=== PATIENT | male | born 1960 | race Caucasian/White ===

== ENCOUNTER → 2016-06-17 | Outpatient (CLI) | payer OTHER ==
[~2016-06-17] MED LIST: CIPR-255 PO; CLON0.5T3 PO; CLX20 PO
[2016-06-17 18:10] LABS: BASO % 0.5 %; BASO ABS # 0.04 K/uL (0-0.2); COMPLETE YES; EOS % 1.5 %; HEMATOCRIT 38.8 % (42-52); IG% 0.4 %; LYMPH % 23.1 %; LYMPH ABS # 1.89 K/uL (1.2-3.4); MEAN CELL VOLUME 88.2 fL (80-100); MEAN CORPUSCULAR HGB CONC 36.3 g/dl (32-36); MEAN PLATELET VOLUME 10.1 fL (7.4-10.4); MONO % 7.9 %; NEUT % 66.6 %; PLATELET COUNT 253 K/uL (130-400); WHITE BLOOD COUNT 8.19 K/uL (4.8-10.8)
[2016-06-17 18:17] LABS: ALT/SGPT 36 U/L (12-78); AMYLASE 72 U/L (25-115); BLOOD UREA NITROGEN 14 mg/dl (7-18); BUN/CREATININE RATIO 12.9 (10-20); CALCIUM 8.5 mg/dl (8.5-10.1); CARBON DIOXIDE 26 mmol/L (21-32); CHLORIDE 106 mmol/L (98-107); GLUCOSE 85 mg/dl (70-99); POTASSIUM 3.9 mmol/L (3.5-5.1); SODIUM 142 mmol/L (136-145)
[2016-06-17 18:20] LABS: ALB/GLOB RATIO 1.3 (0.9-2); ALKALINE PHOSPHATASE 66 U/L (45-117); AST/SGOT 16 U/L (15-37)
== END | disposition home or self-care (01) ==
LOC: C.LABSPEC 17:44
PROVIDERS: ATTEND Family Medicine
DX: R10.84 Generalized abdominal pain (principal)

== ENCOUNTER → 2016-08-17 | Outpatient (CLI) | payer OTHER ==
--- NOTE | 2016-08-17 08:42 | DIAGNOSTIC IMAGING REPORT ---
GI W/AIR SMALL BOWEL ROUTINE CLINICAL HISTORY: R14.0 Abdominal [id number] Left upper quadrant pain. COMPARISON STUDY: Abdomen and pelvis CT 09/19/2015. FLUOROSCOPY TIME: 1.1 minutes. 31 images.. FINDINGS: The patient swallowed barium without difficulty. The esophagus normal in course, caliber, motility. Small hiatus hernia. No gastroesophageal reflux. No gastric ulcerations. The duodenal bulb and duodenal C sweep are within normal limits. Additional overhead and fluoroscopic spot images of the small bowel were obtained over 50 minutes. The small bowel is normal in course and caliber. No evidence for bowel obstruction. The terminal ileum is normally distensible. IMPRESSION: 1. Small hiatus hernia. 2. Otherwise, normal upper GI series and small bowel follow-through. Electronically signed by: Neftali Santos M.D. 08/17/2016 8:41 AM Dictated Date/Time: 08/17/2016 8:38 AM
== END | disposition home or self-care (01) ==
LOC: C.RAD 07:16
PROVIDERS: ATTEND Registered Nurse
DX: R13.10 Dysphagia, unspecified (principal); R14.0 Abdominal distension (gaseous); R10.12 Left upper quadrant pain; K44.9 Diaphragmatic hernia without obstruction or gangrene

== ENCOUNTER 2022-09-30 06:07 | Observation (INO) ==
--- NOTE | 2022-09-22 09:48 | History & Physical Report ---
Date of Service September 22, 2022 date of surgery: 09/30/22 Procedure: Bilateral Total Knee Arthroplasty Surgeon: Luis Felipe Pena Assessment & Plan (1) Degenerative arthritis of knee, bilateral: Plan: Risk and benefits of procedure were discussed in detail, he has failed conservative measures like to proceed with surgical invention. Plan will be bilateral total knee arthroplasty. We will plan an overnight stay with discharge home the following day with home health physical therapy. Will place on Xarelto for 1 month postop. We will plan on 2 weeks of in-home therapy followed by outpatient physical therapy. He otherwise has no other questions or concerns The risks and benefits have been discussed including, but not limited to, risk of infection, nerve injury, stiffness, loss of motion, failure to improve, etc. Reasonable outcomes and options of treatment were discussed. An explanation of appropriate alternatives to the procedure that may be advantageous were discussed and their risks and benefits, as well as the risks and benefits of not proceeding with treatment. I offered to answer any additional inquiries concerning the treatment involved. All the patient's questions were answered. The patient is agreeable, understanding of the treatment plan and alternatives, and wishes to proceed with the treatment plan. History of Present Illness Chief Complaint: bilateral knee pain Primary Care Provider: Jen Lopez DO Mr Mccormack is a pleasant 62-year-old male presented for preop evaluation prior to bilateral total knee replacements. He has been having pain in both of his knees for many years now and now affecting his daily activities including walking standing using stairs. He has a history of left knee arthroscopy with partial meniscectomy in February 2015. Since that time is undergone viscosupplementation as well as cortisone injection without any significant improvement at this point time is failed conservative measures and like to proceed with surgical intervention Allergies Allergy/AdvReac Type Severity Reaction Status Date / Time diphenhydramine Allergy Mild hyper and Verified 10/16/19 08:01 anxious dicyclomine [From Bentyl] Allergy . Verified 10/16/19 08:01 SUNBLOCK Allergy Intermediate HIVES Uncoded 10/16/19 08:01 Home Medications Medication Instructions Recorded Confirmed Type citalopram 20 mg tablet 20 mg PO HS 02/10/18 08/23/19 History meloxicam 15 mg tablet 15 mg PO QAM 05/14/19 08/23/19 History rosuvastatin 10 mg tablet 10 mg PO QAM 05/14/19 08/23/19 History hyoscyamine sulfate 0.125 mg tablet 0.125 mg PO Q8H PRN abdominal pain 08/23/19 Rx #20 tabs lansoprazole 30 mg capsule,delayed 30 mg PO DAILY 08/23/19 08/23/19 History release tramadol 50 mg tablet 50 mg PO Q6H PRN pain #10 tabs 08/23/19 Rx oxycodone 5 mg tablet 5 mg PO Q6H PRN pain #25 tabs 10/14/19 Rx Past Med/Surg History Medical History Anxiety Asthma exercise induced--inhaler prn Depression Diverticular disease GERD (gastroesophageal reflux disease) Hearing deficit L ear History of esophageal dilatation x4-5 Hyperlipidemia no meds Pancreatitis Surgical History History of arthroplasty of left knee History of colonoscopy History of esophagogastroduodenoscopy (EGD) History of left inguinal hernia repair History of tonsillectomy and adenoidectomy Social History Smoking Status: Never smoker Second Hand Exposure: Yes (father smoked); Do You Dip or Chew Tobacco: No; Hx Alcohol Use: Yes Alcohol type: beer, wine and hard liquor Hx Substance Use: No Preferred Language: Arabic Communication Ability: Effective Carbider Required: No Beliefs That Will Affect Care: None Current Living Situation: Spouse and Family Current Living Situation Comment: lives with and daughter Feels Safe at Home: Yes Assistive Devices: None Review of Systems Review of Systems: All systems reviewed & are unremarkable except as noted in HPI & below Constitutional: no fever, no chills and no sweats Respiratory: no cough and no dyspnea Cardiovascular: no chest pain, no dyspnea and no orthopnea Gastrointestinal: no abdominal pain, no nausea and no vomiting Musculoskeletal: as per Subjective / HPI Physical Exam Constitutional: WD/WN, vitals as above no acute distress Respiratory: normal respiratory effort, lungs clear to auscultation no respiratory distress, no labored breathing and does not use accessory muscles Cardiovascular: RRR, no murmur, no edema Gastrointestinal (Abdomen): normal bowel sounds, soft, nontender, no hepatosplenomegaly Musculoskeletal: Bilateral knee Physical exam Overall patient has varus alignment bilaterally, there is no atrophy or ecchymosis noted, +1 suprapatellar effusion in both knees, positive tenderness to both medial and lateral joint lines right knee, more medial sided tenderness to the left knee. negative patellar apprehension, positive crepitation noted to both knees with active ROM. bilateral knees stable to valgus and varus stress, poonam negative, posterior drawer negative. Range of motion right knee 0/3/110, left knee 0/3/115. lower extremities are neurovascularly intact, calf soft and non tender, DP pulse +2 bilaterally. Results & Data Results & Data Diagnostic Findings 4 views of Bilateral Knee X-ray: bilateral knee series confirms advanced degenerative changes bilateral knees, greatest medial compartments and patellofemoral joints, showing joint space narrowing, osteophyte formation and subchondral sclerosis. no acute bony pathology noted.
--- NOTE | 2022-09-22 13:37 | PAT Medication Instructions ---
Medication Instructions Date of Service September 22, 2022 Home Medications Medication Instructions Recorded tramadol 50 mg tablet 50 mg PO Q6H PRN pain #10 tabs 08/23/19 citalopram 20 mg tablet 20 mg PO HS tramadol 50 mg tablet 50 mg PO Q6H PRN omeprazole 40 mg capsule,delayed release 40 mg PO QAM Take morning of surgery With a small sip of water, OTHERWISE NOTHING TO EAT OR DRINK AFTER MIDNIGHT: tramadol 50 mg tablet 50 mg PO Q6H PRN(if needed) omeprazole 40 mg capsule,delayed release 40 mg PO QAM Take evening before surgery citalopram 20 mg tablet 20 mg PO HS tramadol 50 mg tablet 50 mg PO Q6H PRN(if needed) Other Notes If you have any questions please call us at [phone] or [phone] or [phone] or [phone]
--- NOTE | 2022-09-28 12:41 | Anesthesiology Consultation ---
Date of Service September 28, 2022 Assessment & Plan (1) Encounter for pre-operative examination: - bilat TKA discussion vs staged and patient wishes to proceed with bilat TKA. Chart Review Chart Review: Acceptable Risk for Surgery and Patient seen in Pre Admission Testing Teaching & Discussion Pre-Anesthesia Teaching/Discussion Notes: Instructed NPO after midnight before surgery, except medications with 15 cc of water. Medication instructions provided according to the PAT guidelines. History Surgery Operation Date: 09/30/22 08:25 Proposed Procedures p Bilateral Total Knee Arthroplasty - Luis Felipe Pena DO Height/Weight Height: 5 ft 10 in Weight: 93.6 kg Allergies Allergy/AdvReac Type Severity Reaction Status Date / Time diphenhydramine Allergy Mild hyper and Verified 09/22/22 12:11 anxious dicyclomine [From Bentyl] Allergy itching Verified 09/22/22 12:11 SUNBLOCK Allergy Intermediate HIVES Uncoded 10/16/19 08:01 Medications Home Medications Medication Instructions Recorded Confirmed Last Taken citalopram 20 mg tablet 20 mg PO HS 02/10/18 09/22/22 05/13/19 tramadol 50 mg tablet 50 mg PO Q6H PRN pain #10 tabs 08/23/19 09/22/22 Unknown omeprazole 40 mg capsule,delayed 40 mg PO QAM 09/22/22 09/22/22 Unknown release Past Medical History Medical History (Updated 09/28/22 @ 12:54 by Estefani Sawant PA-C) Anxiety Asthma exercise induced-no longer has an inhalers>no current issues Depression Diverticulitis hx, 5 yrs ago GERD (gastroesophageal reflux disease) controlled, stable per pt Hearing deficit L ear History of COVID-2021, home test, not hosp; severe sore throat, fatigue>resolved. History of esophageal dilatation x4-5 Hyperlipidemia Pancreatitis hx-between 5-10 years ago, not hospitalized, resolved in a days Patient denies h/o stroke, seizures, heart attack, heart failure, DM, HTN, blood clots or blood transfusions. Exercise / Class Metabolic Activity II 4-5 Yardwork/Stairs/Walk up hill (denies chest discomfort or shortness of breath with 1 FOs) Past Surgical History Surgical History History of colonoscopy History of esophagogastroduodenoscopy (EGD) History of left inguinal hernia repair History of tonsillectomy and adenoidectomy Hx of arthroscopy of left knee Past Anesthesia History No Hx of Anesthesia Complications and No Family Hx of Anesthesia Complications History of PONV No Hx of PONV and No Hx of Motion Sickness Social History Smoking Status: Never smoker Do You Dip or Chew Tobacco: No Hx Alcohol Use: Yes Alcohol type: beer, wine and hard liquor alcohol intake frequency: holidays/special occasions only Hx Substance Use: No substance use type: does not use Review of Systems Snoring, denies witnessed apneas. Patient denies chest pain, shortness of breath, dyspnea on exertion, fever, chills, cough, wheezing, or palpitations. Physical Exam Vital Signs Vitals BP 161/103 automatic and manual. Pt states had caffeine today and knee pain has been gradually worsening over the past few weeks. BP re-check with patient resting in room-manual 150/98. P 65 SP02 97% on RA RESP 18 Physical Full cervical extension range of motion without pain TMD3.5 finger breadths Mallampati Score 3 Dentition: several crowns, denies chipped or loose teeth, caps, implants or bridges Lungs: normal respiratory effort. Good air movement, clear throughout to auscultation, no adventitious breath sounds Cardiac: regular rate and rhythm, no murmurs noted Carotid arteries: negative bruit bilat Lab Results Anesthesia Preop Results Results Anesthesia Widget: WBC 8.26 K/ul (4.8-10.8) 09/28/22 Hgb 14.4 g/dl (14.0-18.0) 09/28/22 Hct 39.2 % (42.0-52.0) L 09/28/22 Plt 258 K/uL (130-400) 09/28/22 Na 138 mmol/L (136-145) 09/28/22 K 4.7 mmol/L (3.5-5.1) 09/28/22 Cl 102 mmol/L (98-107) 09/28/22 CO2 31 mmol/L (21-32) 09/28/22 BUN 14 mg/dl (6-23) 09/28/22 Creat 1.10 mg/dl (0.6-1.4) 09/28/22 Glucose Level 89 mg/dl (70-99(Fasting)) 09/28/22 PT 10.2 Seconds (9.0-12.0) 09/28/22 PTT 27.7 Seconds (21.0-31.0) 09/28/22 INR 0.9 (0.9-1.1) 09/28/22 HA1c 5.0 % (4.5-5.6) 09/28/22 Urine Color Yellow 09/28/22 Urine Appearance Clear (Clear) 09/28/22 Urine pH 6.5 (4.5-7.5) 09/28/22 Urine Specific [place] 1.019 (1.000-1.030) 09/28/22 Urine Protein Negative (Negative) 09/28/22 Urine Glucose (UA) Negative (Negative) 09/28/22 Urine Ketones Negative (Negative) 09/28/22 Urine Blood Negative (Negative) 09/28/22 Urine Nitrite Negative (Negative) 09/28/22 Urine Bilirubin Negative (Negative) 09/28/22 Urine Urobilinogen Negative (Negative) 09/28/22 Urine Leukocyte Esterase Negative (Negative) 09/28/22 Blood Type A Positive 09/28/22 Antibody Screen NEGATIVE 09/28/22 Testing Electrocardiogram Date: 09/28/22 NSR, rate 63 bpm Chest X-Ray Date: 09/28/22 No acute cardiopulmonary findings COVID-19 Risk Screen Screening Information COVID-19 Screen Date: 09/28/22 Exposure 21 Days Family/Household +COVID Last 21 Days: No Exposure 10 Days Any COVID Exposure Last 10 Days: No Symptoms Last 10 Days Experienced COVID Sx Last 10 Days: No + COVID 0-90 Days COVID + in Last 0-90 Days: No
[~2022-09-30 06:07] MED LIST changes: +ACETAMINOPHEN 500 MG TAB PO SCH; -CIPR-255 PO; -CLON0.5T3 PO; -CLX20 PO; +CeleBREX 200 MG CAP PO SCH; +FAMOTIDINE 20 MG TAB PO SCH; +GABAPENTIN 300 MG CAP PO SCH; +LR 500ML BOLUS, THEN 15ML/HR IV SCH; +LR 60ML/HR IV SCH; +METOCLOPRAMIDE HCL 10 MG TABLET PO SCH; +PREGABALIN 75 MG CAP PO SCH; +ROPIVACAINE 0.5% HCL/PF 150 MG, BUPIVACAINE 0.75% MPF 20 ML, EPINEPHrine 30MG/30ML (OR ... INSTIL SCH; +TRANEXAMIC ACID 1,000 MG **IV Intra-op IV SCH; +TRANEXAMIC ACID 1,000 MG **IV Pre-op IV SCH; +ceFAZolin 2000MG 2,000 MG/15 ML SYR IV SCH; +dexAMETHasone 4 MG TAB PO SCH
[2022-09-30] MEDS ORDERED: ROPIVACAINE 0.5% 5 MG/ML 30 ML VIAL ONE (06:20)
[2022-09-30] MEDS ORDERED: BUPIVACAINE 0.5 % 5 MG/1 ML PF 10ML VIAL ONE (06:20)
[2022-09-30] MEDS ORDERED: ePHEDrine sulfate 50 MG/ML AMP IV PRN (06:53)
[2022-09-30] MEDS ORDERED: ATROPINE SULFATE 0.1 MG/ML 10ML SYR IV PRN (06:53)
[2022-09-30] MEDS ORDERED: fentaNYL citrate PF 100 MCG/2 ML VIAL IV PRN (06:53)
[2022-09-30] MEDS ORDERED: ONDANSETRON INJ 2 MG/ML 2 ML VIAL IV PRN ×2 (06:53→11:08)
[2022-09-30] MEDS ORDERED: MIDAZOLAM HCL 1 MG/ML 2ML VIAL ONE ×2 (07:00→07:31)
[2022-09-30] MEDS ORDERED: PROPOFOL IV EMULSION 10 MG/ML 20 ML VIAL IV ONE ×2 (07:06→09:06)
[2022-09-30] MEDS ORDERED: ONDANSETRON INJ 2 MG/ML 2 ML VIAL ONE (07:08)
--- NOTE | 2022-09-30 07:16 | History & Physical Bridge Note ---
Date of Service September 30, 2022 History & Physical Bridge Note I have examined the patient, reviewed the History & Physical and in the interval since the performance of the History & Physical I have noted the following changes of clinical significance: no changes noted
[2022-09-30] MEDS ORDERED: ORTHO JOINT ANESTHETIC ONE (07:21)
[2022-09-30] MEDS ORDERED: KETAMINE 50 MG/5 ML SYRINGE ONE (07:43)
--- NOTE | 2022-09-30 09:40 | Operative Report ---
Post Operative Report Pre & Post Diagnosis Operation Date: 09/30/22 08:25 Pre-Op Diagnosis: Bilateral Knee Osteoarthritis Post-Op Diagnosis: Bilateral Knee Osteoarthritis I identified the patient and participated in the time-out.: Yes Procedure Operation Date: 09/30/22 08:25 Actual Procedures p Bilateral Total Knee Arthroplasty(Bilateral)Utilizing [employer] persona total knee arthroplasty left size 9 standard tibia F poly 11 medial constrained patella 31 oval right 9 standard tibia F poly 11 medial constrained patella 34 oval - Luis Felipe Pena DO Surgeon Luis Felipe Pena DO Orthopedic Coder Adarsh LEON Estimated Blood Loss 10 Findings Consistent with Post-Op Diagnosis Patient presents with bilateral severe tricompartmental degenerative joint disease eburnated [id number] marginal osteophyte subchondral sclerosis subchondral cystic changes moderate to large effusion Specimens Bone and cartilage Drains Medium bore Hemovac Anesthesia Type MAC Spinal Regional Complications none Disposition Accompanied Patient To Recovery: No Disposition: Recovery Room Indications Patient presents with severe end-stage tricompartmental degenerative joint disease bilateral knees failing attempted conservative management patient presents for total knee arthroplasty bilateral knees patient is failed attempted corticosteroid injection viscosupplementation relative rest activity modification previous arthroscopy bracing Description of Procedure After proper prepping and draping of the bilateral lower extremities, an anterior midline incision was made over the region of the extensor extensor mechanism of the left knee. After meticulous hemostasis was obtained and maintained in subcutaneous tissues a medial parapatellar incision was made The patella was subluxed lateralward the medial lateral gutter were cleaned from any hypertrophic synovitis and scar tissue of the distal femoral block was placed and the distal femoral osteotomy cut was made subsequently the chamfers anterior and posterior osteotomy cuts were made utilizing the 4-in-1 block the tibia was subsequently subluxed anteriorward medial and ateral meniscal remnants were excised in their entirety remnants of the anterior and posterior cruciate ligaments were excised in their entirety excellent exposure of the proximal tibia was obtained the tibial osteotomy guide was placed on the proximal tibial osteotomy cut was made once again the knee was irrigated with copious amounts of sterile saline solution the patella was subsequently everted lateralward thickened scar tissue around the patella was removed the patella was subsequently cut utilizing a freehand technique and was drilled prepared for final preparation and placement of patella socially flexion-extension gaps were checked and the equal and symmetric trials were placed to the appropriate femoral and tibial trials with poly-spacer being placed for equal flexion and extension gaps and full range of motion including extension to 0 and flexion to 140 the trial components after having been taken to recovery range of motion was subsequently removed meticulous hemostasis was obtained and maintained subsequently a knee block injection of joint cocktail including ropivacaine 0.5% 150 mg. Bupivacaine 0.5% epinephrine 1-200,030 mL's toradol 30 mg dexamethasone 4 mg ketamine 10 mg clonidine 100 micrograms normal saline solution 30 mg was infiltrated into the soft tissues of the posterior knee medial lateral gutters and periosteal synovium special attention was paid to protect neurovascular structures at all times subsequently trial components having been removed the knee was irrigated with sterile saline solution. debris was removed the proxi mal tibia was subsequently prepared and was made ready for the placement of the tibial component tibial component was also cemented and tamped into position the femoral component was subsequently placed and cemented in the position the patellar component was subsequently cemented in position because hemostasis once again obtained and maintained wound having been thoroughly irrigated with debridement and debridement lavage was performed as well as a medial parapatellar incision closed with #1 Vicryl in interrupted fashion subcutaneous was closed with #2 Vicryl skin was closed with skin clips Next, an anterior midline incision was made over the region of the extensor extensor mechanism of the right knee. After meticulous hemostasis was obtained and maintained in subcutaneous tissues a medial parapatellar incision was made The patella was subluxed lateralward the medial lateral gutter were cleaned from any hypertrophic synovitis and scar tissue of the distal femoral block was placed and the distal femoral osteotomy cut was made subsequently the chamfers anterior and posterior osteotomy cuts were made utilizing the 4-in-1 block the tibia was subsequently subluxed anteriorward medial and ateral meniscal remnants were excised in their entirety remnants of the anterior and posterior cruciate ligaments were excised in their entirety excellent exposure of the proximal tibia was obtained the tibial osteotomy guide was placed on the proximal tibial osteotomy cut was made once again the knee was irrigated with copious amounts of sterile saline solution the patella was subsequently everted lateralward thickened scar tissue around the patella was removed the patella was subsequently cut utilizing a freehand technique and was drilled prepared for final preparation and placement of patella socially flexion-extension gaps were checked and the equal and symmetric trials were placed to the appropriate femoral and tibial trials with poly-spacer being placed for equal flexion and ex tension gaps and full range of motion including extension to 0 and flexion to 140 the trial components after having been taken to recovery range of motion was subsequently removed meticulous hemostasis was obtained and maintained subsequently a knee block injection of joint cocktail including ropivacaine 0.5% 150 mg. Bupivacaine 0.5% epinephrine 1-200,030 mL's toradol 30 mg dexamethasone 4 mg ketamine 10 mg clonidine 100 micrograms normal saline solution 30 mg was infiltrated into the soft tissues of the posterior knee medial lateral gutters and periosteal synovium special attention was paid to protect neurovascular structures at all times subsequently trial components having been removed the knee was irrigated with sterile saline solution. debris was removed the proximal tibia was subsequently prepared and was made ready for the placement of the tibial component tibial component was also cemented and tamped into position the femoral component was subsequently placed and cemented in the position the patellar component was subsequently cemented in position because hemostasis once again obtained and maintained wound having been thoroughly irrigated with debridement and debridement lavage was performed as well as a medial parapatellar incision closed with #1 Vicryl in interrupted fashion subcutaneous was closed with #2 Vicryl skin was closed with skin clips.. PA-C was necessary for prepping and drapping as well as wound closure of deep fascia Sub cutaneous tissue and skin and was necessary for the case. A sterile compressive dressings were placed, patient was taken to recovery in stable condition of report dictated by Jean I attest to the content of the Intraoperative Record and any orders documented therein. Any exceptions are noted below.Due to the complex nature of the procedure, the entire surgery was performed with the operational assistance of CAROLYN Barber. The events and promotions assistant, under direct supervision, was involved in the actual performance of all aspects of the surgical procedure including hemostasis, tissue retraction and incision, instrument management, patient positioning, and wound closure. I attest to the content of the Intraoperative Record and any orders documented therein. Any exceptions are noted below.
--- NOTE | 2022-09-30 10:45 | XRay Report ---
TWO VIEWS RIGHT KNEE CLINICAL HISTORY: Postoperative examination. FINDINGS: AP and crosstable lateral portable views of the right knee are obtained. A right knee arthr oplasty is in near anatomic alignment. There has been undersurface remodeling of the patella. No acut e fracture is seen. There are expected postoperative changes around the knee including a surgical timothy in, soft tissue edema, and subcutaneous gas. IMPRESSION: Expected postoperative changes status post right knee arthroplasty. No acute fracture is seen. ACT 112: Negative or not required by law. Electronically signed by: Ralph Vivar M.D. 09/30/2022 10:44 AM
[2022-09-30] MEDS ORDERED: METOCLOPRAMIDE HCL INJ 5 MG/ML 2 ML VIAL IV PRN (11:08)
[2022-09-30] MEDS ORDERED: diphenhydrAMINE Capsule 25 MG CAP PO PRN (11:08)
[2022-09-30] MEDS ORDERED: SODIUM CHLORIDE 0.9% 1000ML 1,000 ML IV SCH (11:08)
[2022-09-30] MEDS ORDERED: bisacodyL 10 MG SUPP PR PRN (11:08)
[2022-09-30] MEDS ORDERED: NALOXONE HCL 0.4 MG/1 ML VIAL/CARP IV PRN (11:08)
[2022-09-30] MEDS ORDERED: MAGNESIUM HYDROXIDE SUSP 30 ML UDC PO PRN (11:08)
--- NOTE | 2022-09-30 11:53 | XRay Report ---
XR knee LT 1 or 2V routine HISTORY: 62 years-old Male Surgical Post Op left knee arthroplasty COMPARISON: None TECHNIQUE: 2 views of the left knee FINDINGS: Total joint arthroplasty with patellar resurfacing. Expected postoperative soft tissue swelling the d eep tissue air with surgical drainage catheter. No acute fracture, dislocation or unexpected opaque f oreign body. IMPRESSION: Total joint arthroplasty with expected postoperative changes. ACT 112: Negative or not required by law. The above report was generated using voice recognition software. It may contain grammatical, syntax o r spelling errors. Electronically signed by: Juarez Evans M.D. 09/30/2022 11:51 AM
--- NOTE | 2022-09-30 12:25 | Anesthesiology Progress Note ---
Date of Service September 30, 2022 Anesthesia Post Procedure Vital Signs Vital Signs: Temp Pulse Pulse Resp BP Pulse Ox O2 Del Method 09/30/22 12:00 97.5 F L 60 16 117/72 97 Room Air 09/30/22 11:31 97.5 F L 62 14 126/76 98 Room Air 09/30/22 11:00 97.5 F L 59 L 16 119/75 98 Room Air 09/30/22 10:45 62 18 118/71 97 Room Air 09/30/22 10:35 97.5 F L 61 12 124/73 98 Room Air 09/30/22 10:25 66 17 110/60 96 Room Air 09/30/22 10:15 63 14 108/66 100 Oxymask 09/30/22 10:06 96.8 F L 72 16 127/65 98 Oxymask 09/30/22 06:45 98.1 F 67 18 164/96 H 97 Room Air O2 Flow Rate 09/30/22 12:00 09/30/22 11:31 09/30/22 11:00 09/30/22 10:45 09/30/22 10:35 09/30/22 10:25 09/30/22 10:15 9 09/30/22 10:06 9 09/30/22 06:45 Transfer of Care Handoff Completed per policy Notes Mental Status: alert / awake / arousable and participated in evaluation Patient Amnestic to Procedure: Yes Nausea / Vomiting: adequately controlled Pain: adequately controlled Airway Patency, RR, SpO2: stable & adequate BP & HR: stable & adequate Hydration State: stable & adequate Neuraxial Anesthesia: was administered and sensory block is resolving Anesthetic Complications: no major complications apparent and Pt Satisfied with anesthetic care
[2022-09-30] MEDS: ACETAMINOPHEN 500 MG TAB PO SCH ×2 (14:47→21:19)
[2022-09-30] MEDS: ceFAZolin 2000MG 2,000 MG/15 ML SYR IV SCH ×2 (16:21→23:14)
[2022-09-30] MEDS: oxyCODONE HCL IR 5 MG TAB (IMMEDIATE RELEASE) PO PRN (19:56)
[2022-09-30] MEDS: oxyCODONE HCL 10 MG TABCR (OxyCONTIN) PO SCH (19:56)
[2022-09-30] MEDS: DOCUSATE SODIUM 100 MG CAP PO SCH (19:57)
[2022-09-30] MEDS: SENNA 8.6 MG TAB PO SCH (19:57)
[2022-09-30] MEDS: CITALOPRAM 20 MG TAB PO SCH (19:57)
[2022-10-01] MEDS: ACETAMINOPHEN 500 MG TAB PO SCH ×3 (05:33→21:11)
[2022-10-01 06:24] LABS: Hematocrit (blood only) 31.6 % (42.0-52.0); Hemoglobin 11.6 g/dl (14.0-18.0); Mean Corpuscular Hemoglobin 32.5 pg (25.0-34.0); Mean Corpuscular Hgb Conc 36.7 g/dL (32.0-36.0); Mean Corpuscular Volume 88.5 fL (80.0-100.0); Mean Platelet Volume 10.2 fL (9.4-12.4); Platelet Count 228 K/uL (130-400); RDW Coefficient of Variation 11.9 % (11.5-14.5); RDW Standard Deviation 38.4 fL (36.4-46.3); Red Blood Count 3.57 M/uL (4.70-6.10); White Blood Count 17.47 K/ul (4.8-10.8)
[2022-10-01 06:37] LABS: BUN Creatinine Ratio 14.3 (10-20); Calcium 8.7 mg/dl (8.6-10.3); Creatinine Clr Calc Pharmacy 80.6 ml/min; Est GFR (African American) 82.3 ml/min; Potassium 4.1 mmol/L (3.5-5.1)
--- NOTE | 2022-10-01 06:40 | Orthopedic Progress Note ---
Date of Service October 01, 2022 Assessment & Plan (1) History of total bilateral knee replacement: Plan: POD #1 s/p Bilateral TKAs pt/ot dvt proph with ZENY/SCD/Xarelto plan for d/c home with home health PT after PT Admission and Anticipated Discharge Date Admission Date: September 30, 2022 Subjective POD #1 s/p Bilateral TKAs Review of Systems Constitutional: no fever, no chills and no sweats Respiratory: no cough and no dyspnea Cardiovascular: no chest pain and no dyspnea Gastrointestinal: no abdominal pain, no nausea and no vomiting Physical Exam Physical Exam: Vital Signs Temp 36.6 C 10/01/22 05:54 Pulse 69 10/01/22 05:54 Resp 18 10/01/22 05:54 BP 143/82 H 10/01/22 05:54 Pulse Ox 97 10/01/22 05:54 O2 Del Method Room Air 10/01/22 05:54 O2 Flow Rate 9 09/30/22 10:15 Intake & Output 09/30/22 09/30/22 10/01/22 06:59 18:59 06:59 Intake Total 2200 / 2816.667 616.667 / 2816.667 Output Total 910 / 1250 340 / 1250 Balance 1290 / 1566.667 276.667 / 1566.667 Weight 92.193 kg 93.6 kg Intake: IV 1200 / 1816.667 616.667 / 1816.667 Lactated Ringe r's 1,000 ml @ 15 1000 / 1000 mls/hr IV .Q24 H ROS[facility]IO Rx#: [id number] Sodium Chlorid e 0.9% 1000ML 1, 616.667 / 616.667 000 ml @ 100 m ls/hr IV .Q10H ROSARIO Rx#:[id number] Tranexamic Aci d / 0.7% NaCl 1, 200 / 200 000 mg In 100 ml @ 600 mls/hr IV TODAY@0600 ROSARIO Rx#:[id number] IV Perioperative 1000 / 1000 Output: Urine 800 / 1120 320 / 1120 Estimated Blood Loss 10 / 10 Drain Output 100 / 120 20 / 120 Left Knee Hemo vac #2 20 / 30 10 / 30 Right Knee Hem ovac #1 80 / 90 10 / 90 Other: # Unmeasured Voi ds 1 Weight Measureme nt Method Standing Scale Constitutional: WD/WN, vitals as above Musculoskeletal: bilateral lower Legs: NVDI, calf SNT, negative omar sign. DP palpable, able to wiggle toes/ankle movement without difficulty. dressing clean dry and intact. Results & Data Vital Signs (Past 12 Hours) Vital Signs Temp Pulse Resp BP Pulse Ox O2 Del Method 10/01/22 05:54 36.6 C 69 18 143/82 H 97 Room Air 10/01/22 01:20 36.6 C 65 16 118/77 98 Room Air 09/30/22 21:00 36.8 C 72 16 150/83 H 96 Room Air Diagnostic Findings Laboratory Results WBC 17.47 K/ul (4.8-10.8) H 10/01/22 05:54 RBC 3.57 M/uL (4.70-6.10) L 10/01/22 05:54 Hgb 11.6 g/dl (14.0-18.0) L 10/01/22 05:54 Hct 31.6 % (42.0-52.0) L 10/01/22 05:54 MCV 88.5 fL (80.0-100.0) 10/01/22 05:54 MCH 32.5 pg (25.0-34.0) 10/01/22 05:54 MCHC 36.7 g/dL (32.0-36.0) H 10/01/22 05:54 RDW Std Deviation 38.4 fL (36.4-46.3) 10/01/22 05:54 RDW Coeff of Javier 11.9 % (11.5-14.5) 10/01/22 05:54 Plt Count 228 K/uL (130-400) 10/01/22 05:54 MPV 10.2 fL (9.4-12.4) 10/01/22 05:54 Sodium 136 mmol/L (136-145) 10/01/22 05:54 Potassium 4.1 mmol/L (3.5-5.1) 10/01/22 05:54 Chloride 102 mmol/L (98-107) 10/01/22 05:54 Carbon Dioxide 27 mmol/L (21-32) 10/01/22 05:54 Anion Gap 7 (3-11) 10/01/22 05:54 BUN 16 mg/dl (6-23) 10/01/22 05:54 Creatinine 1.12 mg/dl (0.6-1.4) 10/01/22 05:54 Est Cr Clr Drug Dosing 80.6 ml/min 10/01/22 05:54 Est GFR ( Amer) 82.3 ml/min 10/01/22 05:54 Est GFR (Non-Af Amer) 71.0 ml/min 10/01/22 05:54 BUN/Creatinine Ratio 14.3 (10-20) 10/01/22 05:54 Glucose 109 mg/dl (70-99(Fasting)) H 10/01/22 05:54 Calcium 8.7 mg/dl (8.6-10.3) 10/01/22 05:54 SARS-CoV-2, RNA, NAAT NEGATIVE (NEGATIVE) 09/30/22 06:30 Blood Type Recheck A Positive 09/30/22 06:21 Impressions Knee X-Ray 09/30/22 10:14 XR knee LT 1 or 2V routine HISTORY: 62 years-old Male Surgical Post Op left knee arthroplasty COMPARISON: None TECHNIQUE: 2 views of the left knee FINDINGS: Total joint arthroplasty with patellar resurfacing. Expected postoperative soft tissue swelling the deep tissue air with surgical drainage catheter. No acute fracture, dislocation or unexpected opaque foreign body. IMPRESSION: Total joint arthroplasty with expected postoperative changes. ACT 112: Negative or not required by law. The above report was generated using voice recognition software. It may contain grammatical, syntax or spelling errors. Electronically signed by: Juarez Evans M.D. 09/30/2022 11:51 AM
--- NOTE | 2022-10-01 07:13 | Discharge Summary ---
Date of Service discharge: October 01, 2022 admission: 09-30-22 Admission HPI Per Admitting Provider Mr Mccormack is a pleasant 62-year-old male presented for preop evaluation prior to bilateral total knee replacements. He has been having pain in both of his knees for many years now and now affecting his daily activities including walking standing using stairs. He has a history of left knee arthroscopy with partial meniscectomy in February 2015. Since that time is undergone viscosupple mentation as well as cortisone injection without any significant improvement at this point time is failed conservative measures and like to proceed with surgical intervention Principal Diagnosis bilateral total knee replacements Discharge Exam Vital Signs Temp 36.8 C 10/01/22 06:59 Pulse 68 10/01/22 06:59 Resp 16 10/01/22 06:59 BP 166/94 H 10/01/22 06:59 Pulse Ox 98 10/01/22 06:59 O2 Del Method Room Air 10/01/22 06:59 O2 Flow Rate 9 09/30/22 10:15 Intake & Output 09/30/22 10/01/22 10/01/22 18:59 06:59 18:59 Intake Total 2200 / 2816.667 616.667 / 2816.667 Output Total 910 / 1250 340 / 1250 Balance 1290 / 1566.667 276.667 / 1566.667 Weight 93.6 kg Intake: IV 1200 / 1816.667 616.667 / 1816.667 Lactated Ringer's 1,000 ml @ 15 1000 / 1000 mls/hr IV .Q24H [facility] Rx#: [id number] Sodium Chloride 0.9% 1000ML 1, 616.667 / 616.667 000 ml @ 100 mls/hr IV .Q10H [facility] Rx#:[id number] Tranexamic Acid / 0.7% NaCl 1, 200 / 200 000 mg In 100 ml @ 600 mls/hr IV TODAY@0600 ROSARIO Rx#:[id number] IV Perioperative 1000 / 1000 Output: Urine 800 / 1120 320 / 1120 Estimated Blood Loss 10 / 10 Drain Output 100 / 120 20 / 120 Left Knee Hemovac #2 20 / 30 10 / 30 Right Knee Hemovac #1 80 / 90 90 Other: # Unmeasured Voids 1 Constitutional WD/WN, vitals as above Musculoskeletal bilateral lower legs: NVDI, calf SNT, negative omar sign. DP palpable, able to wiggle toes/ankle movement without difficulty. STORMY dressings clean dry and intact. Discharge Data Allergies Allergy/AdvReac Type Severity Reaction Status Date / Time avobenzone Allergy Intermediate Hives Verified 09/30/22 06:44 octinoxate Allergy Intermediate Hives Verified 09/30/22 06:44 oxybenzone Allergy Intermediate Hives Verified 09/30/22 06:44 diphenhydramine Allergy Mild hyper and Verified 09/30/22 06:44 anxious dicyclomine [From Bentyl] Allergy itching Verified 09/30/22 06:44 Procedures Performed Operation Date: 09/30/22 08:25 Actual Procedures p Bilateral Total Knee Arthroplasty(Bilateral) - Luis Felipe Heaton DO Ordered Studies 09/30/22 05:00 US - OR guided needle placemen Routine Hospital Course (1) History of total bilateral knee replacement: POD #1 s/p Bilateral TKAs pt/ot dvt proph with ZENY/SCD/Xarelto plan for d/c home with home health PT after PT Total Time Total Time Spent Total Time Spent (In Minutes): 20 Discharge Plan Discharge Items Patient Disposition: Home - Home Health Services Reason For Visit: Bilateral Knee Osteoarthritis Discharge Diagnosis: bilateral total knee replacements Activity: Per Instructions section Weightbearing Comment: WBAT with walker Non-emergency contact: Surgeon Call non-emergency contact if: you have any medication questions, your temperature is above 101, your wound has increased redness, your wound has increased drainage and your wound pain has increased Follow-up/Referrals: Jen Lopez DO [Primary Care Provider] - Diet: Regular Addtl Attending Provider Instructions: ACTIVITY RECOMMENDATIONS: SELF CARE INSTRUCTIONS AFTER TOTAL KNEE REPLACEMENT A. You may need to continue a physical therapy program after discharge from the hospital. There are several options available to you. Your doctor will assist you in selecting the best one for you. 1. An out-patient facility 2 to 3 times a week for therapy or home therapy. 2. Continue working on all exercises taught to you in the hospital. Your goals should be to increase bending of your knee to 90 degrees and beyond and to fully straighten your knee. B. You may progress at your own pace from walking with a walker or crutches to a cane; then to no assistive devices. C. Make walking a part of your daily routine. Be up as much as comfortable with rest periods throughout the day. Rest with leg elevation is very important. Use the ice wrap frequently for the first 3-4 weeks. D. There are no restrictions on activities. You may ride in a car, shop, participate in power transformer assembler and all social activities. E. Wear the long elastic stockings (ZENY hose) 20 hours a day for 2 weeks after surgery. They can be removed several times a day for laundering and for a bath. F. You may shower, no tub baths until cleared by your doctor. SPECIAL CARE INSTRUCTIONS: VERY IMPORTANT TO READ AND REVIEW A. There are a few signs you need to watch for after you are home. Call [facility] if you notice any of the followin. Increased severe knee pain. Some pain is expected especially when you exercise. 2. Increased swelling in your leg or knee; pain or swelling of the calf muscle in either lower leg. 3. Any fluid drainage from the incision. 4. Shortness of breath or chest pain. B. Please call [facility] at if you have any concerns or questions about your operation or recovery. The doctor or his nurse will return your call promptly. C. You must take antibiotics before dental work, bladder, bowel or other surgery. Your doctor will provide you with a permanent care to carry describing this precaution. IMPORTANT: * REMEMBER TO TAKE ASPIRIN, 81 MG, TWICE DAILY FOR 4 WEEKS UNLESS OTHERWISE DIRECTED. THIS IS YOUR BLOOD THINNER. * HIGH RISK PATIENTS MAY BE PRESCRIBED A STRONGER BLOOD THINNER. THIS WILL BE PROVIDED AT DISCHARGE. * CALL IF INCREASED PAIN, REDNESS, DRAINAGE OR FEVER GREATER THAT 101. * WEAR ZENY HOSE 20 HOURS PER DAY FOR 2 WEEKS. DRESSING INSTRUCTIONS * STORMY Dressing- This is a large suction dressing covering your incision. This will help pull any excess drainage from the wound and allow your incision to heal properly. You may shower with this if you can keep the unit outside of the shower. If any bleeding or leakage is noted please call your doctor's office. This will remain on your incision for 7 days and then should be removed. This can be done yourself or by the home nursing staff if applicable. The entire unit is disposable once removed. Once removed, keep incision clean and dry. If redness or drainage is noted, please call your surgeon. ONCE STORMY IS REMOVED, FOLLOW THESE INSTRUCTIONS: DERMABOND Prineo- This is a mesh tape dressing that is covered with glue. It should remain in place until the incision is properly healed, usually 10-14 days. This dressing is designed to naturally slough off. You may trim the excess mesh tape as it peels off. Incision may be briefly wet in a shower. Dry immediately by blotting with a clean, dry towel. Do not bath or swim until instructed by your doctor. Do not scratch, rub, or pick at the dressing. Do not apply any topical ointments or lotions until dressing is completely removed and/or instructed by your doctor. There may be a small piece of suture material at one end of your incision. Do not pull or trim this. If it is bothersome or catching on clothing, you may cover it with a band-aid. IF INCISION IS LEAKING THROUGH DRESSING, CALL THE OFFICE . FOLLOW UP VISIT: If appointment is not already scheduled: Please call [facility] to make a follow-up appointment for 2 weeks after your surgery at . Pending Studies at Discharge: No Stand-Alone Forms: My [facility] Medications and DC Order Prescriptions: New Xarelto 10 mg Tablet 10 mg PO DAILY 28 Days Qty: 28 0RF acetaminophen 500 mg tablet 1,000 mg PO Q8 21 Days Qty: 126 0RF cefadroxil 500 mg capsule 500 mg PO BID 14 Days Qty: 28 0RF docusate sodium 100 mg Capsule 100 mg PO BID 10 Days Qty: 20 0RF oxycodone 5 mg tablet 5 - 10 mg PO Q6H PRN (Reason: pain) Qty: 30 0RF Rx Instructions: ongoing therapy, supervising dr anna heaton. max 6 tabs in 24 hours Continued citalopram 20 mg Tablet 20 mg PO HS omeprazole 40 mg capsule,delayed release(DR/EC) 40 mg PO QAM Discontinued tramadol 50 mg tablet 50 mg PO Q6H PRN (Reason: pain) Qty: 10 0RF Admission Data Admit Date/Time: 09/30/22 10:14 Attending Provider: Luis Felipe Heaton Admit Provider: Luis Felipe Heaton Primary Care Provider: Jen Lopez
[2022-10-01] MEDS: DOCUSATE SODIUM 100 MG CAP PO SCH ×2 (07:38→20:06)
[2022-10-01] MEDS: RIVAROXABAN 10 MG TABLET PO SCH (07:38)
[2022-10-01] MEDS: MULTIVITAMIN TAB PO SCH (07:38)
[2022-10-01] MEDS: oxyCODONE HCL 10 MG TABCR (OxyCONTIN) PO SCH ×2 (07:45→20:08)
[2022-10-01] MEDS: oxyCODONE HCL IR 5 MG TAB (IMMEDIATE RELEASE) PO PRN ×3 (11:15→16:20)
[2022-10-01] MEDS: HYDROmorphone INJ 1 MG/ML SYRINGE IV PRN ×3 (13:45→21:43)
[2022-10-01] MEDS ORDERED: clonazePAM 1 MG TAB PO PRN (17:34)
[2022-10-01] MEDS ORDERED: CALCIUM CARBONATE 500 MG CHEWABLE TAB PO PRN (17:35)
[2022-10-01] MEDS: SENNA 8.6 MG TAB PO SCH (20:07)
[2022-10-01] MEDS: CITALOPRAM 20 MG TAB PO SCH (20:07)
[2022-10-02] MEDS: oxyCODONE HCL IR 5 MG TAB (IMMEDIATE RELEASE) PO PRN ×3 (00:49→18:19)
[2022-10-02] MEDS: ACETAMINOPHEN 500 MG TAB PO SCH ×3 (05:14→21:33)
[2022-10-02] MEDS: HYDROmorphone INJ 1 MG/ML SYRINGE IV PRN ×3 (07:45→23:28)
[2022-10-02] MEDS ORDERED: KETOROLAC TROMETHAMINE 15 MG/ML VIAL ONE (08:21)
--- NOTE | 2022-10-02 08:32 | Orthopedic Progress Note ---
Date of Service October 02, 2022 Assessment & Plan (1) History of total bilateral knee replacement: Plan: POD #2 s/p Bilateral TKAs PT/OT protocols. Weightbearing as tolerated. DVT prophylaxis-rivaroxaban, SCDs, ZENY hose Pain management-currently on oxycodone, and Dilaudid, Tylenol. Patient was initially started on OxyContin of which made him nauseous and he is now refusing. This was discontinued. I have added Toradol 15 mg IV every 6 hours scheduled to assist in his pain management. DC planning-planning for home health services upon discharge. Addendum 11:43am: Returned to see patient to see how his PT session went. States it went ok but not great. Ambulated out into the hallway near his room but still having pain control issues. Did not ambulate too far per patient and nursing. We will continue his Toradol q6h kindra through the AM. Add MS Contin 15mg po bid and see if he is able to handle it better than the Oxycontin which was dc'd. (Nausea) Recheck in AM to see how he is progressing. Admission and Anticipated Discharge Date Admission Date: September 30, 2022 Subjective Postop day 2 Patient sitting up in bed awake and alert. Had just received a dose of IV Dilaudid secondary to pain control. Patient states that he was sleeping fairly well and missed his 4-hour window and fell behind on his pain control. No other complaints this morning. He states that the IV pain medication is helping. Physical Exam Physical Exam: Nessa dressings bilaterally are dry, and intact. Calves are soft nontender. Neurovascular is intact. Toes are mobile. Results & Data Vital Signs (Past 12 Hours) Vital Signs Temp Pulse Resp BP Pulse Ox O2 Del Method 10/02/22 06:59 36.5 C 86 14 142/84 H 94 Room Air 10/01/22 21:41 36.6 C 73 14 150/89 H 99 Room Air
[2022-10-02] MEDS: MULTIVITAMIN TAB PO SCH (09:17)
[2022-10-02] MEDS: KETOROLAC 30 MG/ML VIAL IV SCH ×3 (09:17→20:29)
[2022-10-02] MEDS: DOCUSATE SODIUM 100 MG CAP PO SCH ×2 (09:17→20:28)
[2022-10-02] MEDS: RIVAROXABAN 10 MG TABLET PO SCH (09:17)
[2022-10-02 09:33] LABS: Hematocrit (blood only) 29.6 % (42.0-52.0); Hemoglobin 10.5 g/dl (14.0-18.0); Mean Corpuscular Hemoglobin 32.6 pg (25.0-34.0); Mean Corpuscular Hgb Conc 35.5 g/dL (32.0-36.0); Mean Corpuscular Volume 91.9 fL (80.0-100.0); Platelet Count 218 K/uL (130-400); RDW Coefficient of Variation 12.5 % (11.5-14.5); RDW Standard Deviation 41.1 fL (36.4-46.3); Red Blood Count 3.22 M/uL (4.70-6.10); White Blood Count 10.36 K/ul (4.8-10.8)
[2022-10-02 09:41] LABS: BUN Creatinine Ratio 13.7 (10-20); Calcium 8.1 mg/dl (8.6-10.3); Creatinine Clr Calc Pharmacy 77.2 ml/min; Est GFR (African American) 78.1 ml/min; Est GFR (Non-African American) 67.4 ml/min
[2022-10-02 09:53] LABS: Potassium 3.7 mmol/L (3.5-5.1)
[2022-10-02] MEDS: MoRPHine SULFATE CR 15 MG TABCR PO SCH ×2 (12:55→22:33)
[2022-10-02] MEDS ORDERED: LIDOCAINE 2% JELLY 5 ML TUBE EXT SCH (13:00)
[2022-10-02] MEDS: SENNA 8.6 MG TAB PO SCH (20:28)
[2022-10-02] MEDS: CITALOPRAM 20 MG TAB PO SCH (20:28)
[2022-10-03] MEDS: KETOROLAC 30 MG/ML VIAL IV SCH ×3 (02:17→13:25)
[2022-10-03] MEDS: ACETAMINOPHEN 500 MG TAB PO SCH ×2 (05:37→13:25)
[2022-10-03] MEDS: MULTIVITAMIN TAB PO SCH (08:53)
[2022-10-03] MEDS: RIVAROXABAN 10 MG TABLET PO SCH (08:53)
[2022-10-03] MEDS: DOCUSATE SODIUM 100 MG CAP PO SCH (08:53)
[2022-10-03] MEDS: oxyCODONE HCL IR 5 MG TAB (IMMEDIATE RELEASE) PO PRN ×3 (08:55→17:38)
[2022-10-03] MEDS ORDERED: oxyCODONE HCL 10 MG TABCR (OxyCONTIN) PO SCH (11:00)
--- NOTE | 2022-10-03 12:47 | Orthopedic Progress Note ---
Date of Service October 03, 2022 Assessment & Plan (1) History of total bilateral knee replacement: Plan: POD #3 s/p Bilateral TKAs PT/OT protocols. Weightbearing as tolerated. DVT prophylaxis-rivaroxaban, SCDs, ZENY hose Pain management-currently on oxycodone, and Dilaudid, Tylenol. Plan for DC home today pending pain control DC planning-planning for home health services upon discharge. Admission and Anticipated Discharge Date Admission Date: October 02, 2022 Subjective Patient seen and examined, no acute meds overnight. Pain control improving Physical Exam Constitutional: General: No acute distress, oriented to person place and time Musculoskeletal: Right lower extremity -Dressing clean dry and intact -Sensation intact to light touch s/spn/dpn/t/s -Fires ta/ehl/gsc +DP/PT Left lower extremity -Dressing clean dry and intact -Sensation intact to light touch s/spn/dpn/t/s -Fires ta/ehl/gsc +DP/PT Results & Data Vital Signs (Past 12 Hours) Vital Signs Temp Pulse Resp BP Pulse Ox O2 Del Method 10/03/22 07:45 36.9 C 88 16 151/94 H 94 Room Air
[2022-10-03] MEDS ORDERED: oxyCODONE IR HOME PACK PO ONE (19:11)
== END 2022-10-03 18:05 | disposition home health service (06) | DRG 462 ==
LOC: ASU 06:07 → 3E 06:07